=== PATIENT | female | born 1990 | race Caucasian/White ===

== ENCOUNTER 2020-02-10 10:41 | Observation (INO) | payer BC, OTHER ==
[2020-02-10] MEDS ORDERED: Clindamycin/D5W 600 mg/50 ml Premix Bag ONE (11:55)
[2020-02-10 12:28] LABS: #Basophils 0.1 thou/uL (0.0-0.2); #Lymphocytes 0.2 thou/uL (1.20-3.40); #Monocytes 0.5 thou/uL (0.11-0.59); #Neutrophils 9.9 thou/uL (1.40-6.50); %Basophils 0.5 % (0.0-1.0); %Lymphocytes 2.1 % (21.0-51.0); %Monocytes 4.2 % (0.0-10.0); %Neutrophils 93.1 % (42.0-75.0); Hemoglobin 13.9 g/dL (12.0-16.0); Mean Corpuscular HGB CONC 31.7 g/dL (32.0-36.0); Mean Corpuscular Volume 94.8 fL (78.0-98.0); Mean Platelet Volume 8.9 fL (7.4-10.4); Platelet Count 192 thou/uL (130-400); RBC Distribution Width 12.3 % (11.5-14.5); Red Blood Cell (RBC) Count 4.61 mill/uL (4.20-5.40); White Blood Cell (WBC) Count 10.6 thou/uL (4.8-10.8)
[2020-02-10 12:45] LABS: AST (SGOT) 17 U/L (5-34); Albumin 4.7 g/dL (3.5-5.0); Alkaline Phosphatase 61 U/L (40-110); Anion Gap 15 mmol/L (10-20); BUN (Urea Nitrogen) 15 mg/dL (7.0-18.7); Bilirubin, Total 2.2 mg/dL (0.2-1.2); Calc. Creatinine Clearance 0 mL/min (70-130); Calcium 9.4 mg/dL (7.8-10.44); Carbon Dioxide 21 mmol/L (22-29); Chloride 107 mmol/L (98-107); Estimated GFR-MDRD 79; Globulin 2.9 g/dL (2.4-3.5); Glucose 94 mg/dL (70-105); Potassium 3.7 mmol/L (3.5-5.1); Protein, Total 7.6 g/dL (6.0-8.3); Sodium 139 mmol/L (136-145)
[2020-02-10 13:03] LABS: ALT (SGPT) 17 U/L (8-55)
[2020-02-10] MEDS ORDERED: ALPRAZolam 0.5 MG TAB ONE (13:49)
[2020-02-10] MEDS ORDERED: HYDROcodone/Acetaminophen 5/325 mg Tablet PO PRN (14:31)
[2020-02-10] MEDS ORDERED: Ondansetron PF 4 MG/2 ML Vial IVP PRN (14:31)
[2020-02-10] MEDS ORDERED: Ondansetron ODT 4 MG TAB SL PRN (14:31)
[2020-02-10 14:41] VITALS: BMI 22.6
[2020-02-10] MEDS: Acetaminophen 325 MG TAB PO PRN (19:44)
[2020-02-10] MEDS: Clindamycin/D5W 600 MG in Premix Bag 1 BAG IVPB SCH (21:00)
[2020-02-11] MEDS: Clindamycin/D5W 600 MG in Premix Bag 1 BAG IVPB SCH ×2 (04:32→12:03)
[2020-02-11] MEDS: ALPRAZolam 0.5 MG TAB PO PRN ×2 (04:38→12:29)
[2020-02-11] MEDS: Acetaminophen 325 MG TAB PO PRN ×2 (04:38→11:12)
[2020-02-11] MEDS ORDERED: Clindamycin/D5W 600 mg/50 ml Premix Bag ONE (12:38)
[2020-02-11] MEDS ORDERED: Ibuprofen 600 MG TAB PO PRN (13:00)
[2020-02-11 16:48] VITALS: BP 102/56; TEMP 98.5
--- NOTE | 2020-02-11 20:12 | HP ---
CHIEF COMPLAINT: Skin infection. 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 She says when she exercises, she often develop blisters on her fingers. She did notice some redness and swelling to the blisters on both hands and on the morning of the day of admission, she began noticing increased redness and swelling on her hands with streaks up her forearms. She felt nauseated, febrile with overall malaise and went to the emergency room for evaluation. In the emergency room, she was diagnosed with rapidly developing cellulitis. She was febrile, temperature 101.2 and was determined appropriate for inpatient observation with IV antibiotics. The patient has multiple allergies including penicillin, sulfa, and cephalosporins, and thus was placed on IV clindamycin. PAST MEDICAL HISTORY: Significant for heart murmur and anxiety. MEDICATIONS: Include Xanax 0.25 to 0.5 mg q.8 hours p.r.n. anxiety. ALLERGIES: OMNICEF, PENICILLIN, AND CEPHALOSPORIN. SOCIAL HISTORY: Denies any alcohol or social drug use. No significant smoking history and patient is independent of all activities of daily living. REVIEW OF SYSTEMS: The patient has symptoms as above, otherwise denies any obvious rash other than the redness as described in HPI. No chest pain or shortness of breath. She did report some nausea and malaise, but no emesis or diarrhea. The patient denies any recent weight loss nor weight gain. No URI-like symptoms. No shortness of breath. No back pain and diffuse aches. PHYSICAL EXAMINATION: GENERAL: White female with slight anxiety, otherwise no distress. VITAL SIGNS: Blood pressure 138/68, respiratory rate was 20, pulse was 72. HEENT: Atraumatic, normocephalic. Extraocular movements were intact. Pupils equal, round, reactive to light and accommodation. Oropharynx: Mucous membranes are moist. No exudate, discharge, or lesions. NECK: Supple. No mass palpated. No bruits auscultated. CHEST: Clear to auscultation bilaterally without rales or wheezes. HEART: Has regular rate and rhythm without murmur murmurs, rubs, or gallops. ABDOMEN: Soft, nontender, nondistended. No masses are palpated. EXTREMITIES: No cyanosis, clubbing, or edema other than diffuse blisters on the base of the palmar fingers bilaterally with diffuse redness, swelling and some streaks up her palmar surface of the forearms bilaterally. The patient also has some diffuse redness on her chest and back. ASSESSMENT AND PLAN: 1. Acute cellulitis of the hands secondary to trauma. 2. Anxiety, stable. BRIEF SUMMARY OF HOSPITAL COURSE: The patient was placed on IV clindamycin. Her fevers resolved. Her white count [id number]. Her electrolytes were normal. Blood cultures were initially negative in the 1st 12 hours post admission and she had no further fevers. The following morning, she had decreased erythema and swelling to her forearms. There was still some redness to the hand, but since the patient has been almost 24 hours afebrile with preliminary blood cultures negative showing response to antibiotics it is deemed appropriate to be discharged to home on oral clindamycin. DISCHARGE MEDICATIONS: Clindamycin 450 mg p.o. t.i.d. x10 days. The patient will follow up with her PCP within the next 2 weeks. Activity will be as tolerated. Job ID: [id number]
== END 2020-02-11 17:00 | disposition home or self-care (01) ==
LOC: BURERS 10:41 → BURMED 13:17
PROVIDERS: ADMIT Family Medicine; ATTEND Family Medicine
DX: L03.114 Cellulitis of left upper limb (principal); L03.115 Cellulitis of right lower limb; F41.9 Anxiety disorder, unspecified; Z79.899 Other long term (current) drug therapy; Z88.0 Allergy status to penicillin; Z88.1 Allergy status to other antibiotic agents; Z88.2 Allergy status to sulfonamides
CPT/HCPCS: 80053; 83605; 85025; 87040; 96365; 96366; G0378; J3490